=== PATIENT | female | born 1985 | race African-American/Black ===

== ENCOUNTER 2020-08-17 14:18 | Emergency (ER) | payer OTHER, SELFPAY ==
[2020-08-17 14:25] VITALS: PULSE 90; RESP 16; TEMP 36.8; O2SAT 100
--- NOTE | 2020-08-17 15:00 | ED.URI ---
HPI - URI/Sore Throat General Chief Complaint: Upper Respiratory Infection Stated Complaint: Headache Time Seen by Provider: 08/17/20 15:00 Source: patient Mode of arrival: ambulatory Limitations: no limitations History of Present Illness HPI Narrative: Suma Edmondson is a 35 yo female with no PMH who comes to [facility] with complaints of sinus pressure and pain and a headache that has been going on for 5 to 7 days. Her PCP sent her out Zithromax which made her stomach really upset but the PCP cannot see her until September 28. She has not had Covid testing has not had fever chills other typical symptoms related to Covid virus Related Data Home Medications Medication Instructions Recorded Confirmed Syness Bc Pill 08/17/20 Allergies Allergy/AdvReac Type Severity Reaction Status Date / Time banana Allergy Mild Hives / Verified 11/17/17 19:43 Red Face seafood Allergy Mild Hives / Uncoded 11/17/17 19:44 Red Face Review of Systems Review of Systems: Narrative: CONSTITUTIONAL: Denies fever, chills, sweats. EYES: Denies visual changes, redness, discharge. ENT: Denies rhinorrhea, congestion, sore throat, otalgia. Bilateral sinus pressure and tenderness, headache CARDIOVASCULAR: Denies chest pain, palpitations, edema. RESPIRATORY: Denies dyspnea, wheezing, cough GASTROINTESTINAL: Denies abdominal pain, nausea, vomiting, diarrhea. GENITOURINARY: Denies dysuria, hematuria, abnormal discharge SKIN: Denies rash or itching. NEUROLOGIC: Denies numbness, or focal weakness. PSYCHIATRIC: Denies anxiety or depression. PMFSH Past Medical History Medical History No acute medical problems Family History Family History Other No acute medical problems Social History Social History (Updated 08/17/20 @ 15:09 by Savi Feliz CNP) Smoking status: Never smoker Alcohol intake: current Comments At time of signature, I agree with nursing past medical, surgical, social and family history. There is no relevant family history pertinent to the presenting complaint. Exam Narrative: Exam Narrative: GENERAL: This is a well-nourished, well-developed patient, in mild distress. HEAD: normocephalic, atraumatic. EYES:. Sclera clear/white. Vision is grossly intact. EARS: External ears normal, auditory canals right ear draining TMs normal without perforation. Hearing grossly intact. NOSE: External nose normal without nasal discharge, nares without redness, no rhinorrhea. Has bilateral frontal sinus tenderness THROAT: Mucous membranes moist, posterior pharynx erythema with no exudate NECK: Neck supple, non-tender CARDIOVASCULAR: Regular rate and rhythm without murmurs, gallops, or rubs. RESPIRATORY: Clear to auscultation. Breath sounds equal bilaterally. No wheezes, rales, or rhonchi. GASTROINTESTINAL: Abdomen soft, non-tender, SKIN: warm, intact with no suspicious lesions or rash, good texture and turgor. NEURO: awake, alert, and oriented to person, place and time. There were no obvious focal neurologic abnormalities. Steady gait EXTREMITIES: Normal range of motion. BACK: Nontender without deformity Course Course Emergency Course: Patient was symptomatic for the last 5 to 7 days and called her PCP who sent Zithromax out the medication made her sick and she stopped taking it although she still symptomatic. Now she has sinus pain and headache, has a history of sinus congestion this time of the year also is complaining of ear pain her left ear being worse than the right Covid test was negative (rapid) Started on steroids Zyrtec and eardrops Vital Signs Vital signs: Vital Signs Temperature 98.2 F 08/17/20 14:25 Pulse Rate 90 08/17/20 14:25 Respiratory Rate 16 08/17/20 14:25 Pulse Oximetry 100 08/17/20 14:25 Temperature 98.2 F 08/17/20 14:25 Pulse Rate 90 08/17/20 14:25 Respiratory
== END 2020-08-17 16:12 | disposition home or self-care (01) ==
PROVIDERS: Emergency Provider Nurse Practitioner; PCP Family Medicine
DX: H66.001 Acute suppurative otitis media without spontaneous rupture of ear drum, right ear (principal); J01.11 Acute recurrent frontal sinusitis; Z20.822 Contact with and (suspected) exposure to COVID-19
CPT/HCPCS: 87426; 99213; C9803; G0463

== ENCOUNTER 2021-01-17 08:53 | Emergency (ER) | payer OTHER, SELFPAY ==
[2021-01-17 09:02] VITALS: BP 113/79; PULSE 75; RESP 16; TEMP 37; O2SAT 99
--- NOTE | 2021-01-17 09:45 | ED.URI ---
HPI - URI/Sore Throat General Chief Complaint: Upper Respiratory Infection Stated Complaint: sore throat/cp Time Seen by Provider: 01/17/21 09:37 Source: patient and RN notes reviewed Mode of arrival: ambulatory Limitations: no limitations History of Present Illness HPI Narrative: Patient presents today complaining of a sore throat since yesterday. Denies any additional symptoms to include cough, congestion, rhinorrhea, ear pain, fever. Currently rates her pain 8/10 and took 2 ibuprofen at 2:00 this morning without relief. MD elicited complaint: sore throat Related Data Home Medications Medication Instructions Recorded Confirmed No Home Medications 01/17/21 01/17/21 Allergies Allergy/AdvReac Type Severity Reaction Status Date / Time banana Allergy Mild Hives / Verified 11/17/17 19:43 Red Face seafood Allergy Mild Hives / Uncoded 11/17/17 19:44 Red Face Review of Systems Review of Systems: CONSTITUTIONAL: Denies body aches, fever, chills, or sweats. EYES: Denies visual changes, redness, or discharge. ENT: Denies rhinorrhea, congestion, or otalgia.+ Sore throat CARDIOVASCULAR: Denies chest pain, palpitations, or edema. RESPIRATORY: Denies cough or dyspnea. GASTROINTESTINAL: Denies abdominal pain, nausea, vomiting, or diarrhea. GENITOURINARY: Denies dysuria or hematuria. SKIN: Denies rash, itching, or wounds. MUSCULOSKELETAL: Denies back pain, joint pain, or myalgia. NEUROLOGIC: Denies headache, numbness, tingling, or weakness. PSYCH: Denies depression or anxiety. PMFSH Past Medical History Medical History No acute medical problems Family History Family History Other No acute medical problems Social History Social History (Updated 08/17/20 @ 15:09 by Savi Feliz CNP) Smoking status: Never smoker Alcohol intake: current Comments At time of signature, I have reviewed and agree with nursing past medical, surgical, social and family history unless otherwise noted. Please see nursing chart for further information. There is no relevant family history pertinent to the presenting complaint Exam Narrative: GENERAL: Well-appearing, well-nourished, and in no acute distress. HEAD: Normocephalic, atraumatic. EYES: EOMI. No redness or drainage. Conjunctivae normal. ENT: Mucous membranes pink and moist. Nares clear. No rhinorrhea. TMs normal bilaterally. Throat very mildly erythematous without edema or exudate. Uvula midline. NECK: Normal AROM. Supple. Tenderness over the lymph nodes of the anterior cervical chain. CHEST: No respiratory distress. Clear to auscultation. HEART: Regular rate and rhythm. No murmur appreciated. Normal peripheral pulses. EXTREMITIES: Normal range of motion. No edema. SKIN: Warm, dry, no rash. Capillary refill normal. Normal skin turgor. NEURO: No focal deficits. Alert and oriented x3. Gait steady. PSYCH: Normal affect. No signs of depression or anxiety. Course Vital Signs Vital signs: Vital Signs Temperature 98.6 F 01/17/21 09:02 Pulse Rate 75 01/17/21 09:02 Respiratory Rate 16 01/17/21 09:02 Blood Pressure 113/79 01/17/21 09:02 Pulse Oximetry 99 01/17/21 09:02 Temperature 98.6 F 01/17/21 09:02 Pulse Rate 75 01/17/21 09:02 Respiratory Rate 16 01/17/21 09:02 Blood Pressure 113/79 01/17/21 09:02 Pulse Oximetry 99 01/17/21 09:02 Reviewed. Pt has been instructed to follow up with his PCP regarding his elevated blood pressure today. MDM - URI/Sore Throat Differential Diagnosis Differential diagnosis: Likely upper respiratory infection, pharyngitis and other (Strep throat) Lab Data Attestation: I reviewed the patient's lab results. Labs: Strep Screen Presumptive Negative *(Reference Range: Negative)* Critical Care Time Critical Care Time Consuelo
== END 2021-01-17 10:01 | disposition home or self-care (01) ==
PROVIDERS: Emergency Provider Nurse Practitioner; PCP Nurse Practitioner Family
DX: J02.9 Acute pharyngitis, unspecified (principal)
CPT/HCPCS: 87081; 87880; 99213; G0463

== ENCOUNTER 2021-09-24 09:11 | Emergency (ER) | payer BC, SELFPAY ==
[2021-09-24 09:23] VITALS: BP 119/76; PULSE 74; RESP 16; TEMP 36.6; O2SAT 99
--- NOTE | 2021-09-24 09:32 | ED.URI ---
HPI - URI/Sore Throat General Chief Complaint: Upper Respiratory Infection Stated Complaint: Sore Throat Time Seen by Provider: 09/24/21 09:33 Source: patient, RN notes reviewed and old records reviewed Mode of arrival: ambulatory Limitations: no limitations History of Present Illness HPI Narrative: 36-year-old female presents to the [facility] with complaints of a sore throat that started when she woke up this morning. Patient states that she called in sick to work. Requesting a work note. Denies fevers. No treatment prior to arrival. Denies any abdominal pain or chest pain. Denies any nausea vomiting or diarrhea. States that she just has a sore throat Related Data Home Medications Medication Instructions Recorded Confirmed etonogestrel 0.12 mg-ethinyl 1 vag ring vaginal MONTHLY 09/24/21 09/24/21 estradiol 0.015 mg/24 hr vaginal ring (EluRyng) Allergies Allergy/AdvReac Type Severity Reaction Status Date / Time banana Allergy Mild Hives / Verified 09/24/21 09:38 Red Face seafood Allergy Mild Hives / Uncoded 09/24/21 09:38 Red Face Review of Systems Review of Systems: All systems reviewed & are unremarkable except as noted in HPI and below Constitutional: Constitutional: Reports no additional constitutional complaints, Denies chills and Denies fever(s) Eyes: Eyes: Reports no additional eye complaints ENT: Reports as per HPI and Reports sore throat Cardiovascular: Cardiovascular: Reports no additional cardiovascular complaints Respiratory: Respiratory: Reports no additional respiratory complaints Gastrointestinal: Gastrointestinal: Reports no additional gastrointestinal complaints Musculoskeletal: Musculoskeletal: Reports no additional musculoskeletal complaints Integumentary/Breasts: Skin/Breast: Reports system reviewed and no additional complaints, except as docu Neurologic: Reports system reviewed and no additional complaints, except as documented Psychiatric: Psychiatric: Reports no additional psychiatric complaints Allergic/Immunologic: Allergic/Immunologic: Reports no additional allergic/immunologic complaints [facility] Past Medical History Medical History No acute medical problems Family History Family History Other No acute medical problems Social History Social History Smoking status: Never smoker Alcohol intake: current Comments At the time of my signature, I reviewed and agree with the nursing past medical, surgical, social, and family history. There is no relevant family history pertinent to the patient complaint. Exam Const: General: healthy appearing, no acute distress and alert Nutritional Appearance: well nourished and obese Orientation/consciousness: patient oriented x3 Limitations: no limitations HENMT: Head: normal to inspection Ears: external ears normal, TM's normal bilaterally, EAC's normal and mastoids normal General nose exam: Normal external nose present Mouth: Yes Normal oral and palatal mucosa present Throat: posterior oropharynx normal, tonsils normal, uvula midline and postnasal drainage Eyes: General: appearance normal, both eyes and all related structures Pupils: Equal, round and reactive pupils present Neck: Neck: normal visual inspection, no lymphadenopathy and no meningeal signs Chest: Chest palpation & inspection: normal inspection of the chest Resp: Effort & Inspection: normal respiratory effort and no use of accessory muscles Auscultation: clear to auscultation bilaterally, no crackles, no rales, no rhonchi and no wheezes Cardio: Rate: regular rate Rhythm: regular rhythm Back/Spine/Pelvis: Cervical Spine: normal cervical lordosis Thoracic/Lumbar Spine: thoracic and lumbar spine normal to inspection Skin: General skin exam: normal color Rashes: no rashes Wou
== END 2021-09-24 10:04 | disposition home or self-care (01) ==
PROVIDERS: Emergency Provider Nurse Practitioner; PCP Family Medicine
DX: J02.9 Acute pharyngitis, unspecified (principal)
CPT/HCPCS: 87081; 87880; 99213; G0463

== ENCOUNTER 2021-11-27 11:33 | Emergency (ER) | payer BC, SELFPAY ==
--- NOTE | ~2021-11-27 | XR_ITS ---
EXAMINATION: XR hand LT min 3V INDICATION: Left hand pain TECHNIQUE: Three views of the left hand are obtained. COMPARISON: None available FINDINGS: Bone alignment is normal. There is no fracture. There is mild dorsal soft tissue swelling o f the hand. The joint spaces are normal. IMPRESSION: 1. No acute osseous abnormality. Reviewed, dictated and finalized at location B.
[2021-11-27 11:42] VITALS: BP 121/79; PULSE 81; RESP 16; TEMP 36.6; O2SAT 99
--- NOTE | 2021-11-27 12:01 | ED.UPPEXIN ---
HPI - Extremity Injury (Upper) General Chief Complaint: Extremity Injury, Upper Stated Complaint: left hand swollen Time Seen by Provider: 11/27/21 12:02 Source: patient, RN notes reviewed and old records reviewed Mode of arrival: ambulatory Limitations: no limitations History of Present Illness HPI narrative: 36-year-old female who presents to [facility] care with complaints of pain to the left dorsal hand across meta-carpal region from where she hit her left hand on a wheel chair last evening. 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 She reports that she is also having pain to her left bicep region with some pain with movement and to the lower left back. MD complaint: injury to: left, arm (bicep) and hand Onset (ago): day(s) (last night) Other injuries: back (left lower) Severity scale (1-10): 3 Related Data Home Medications Medication Instructions Recorded Confirmed etonogestrel 0.12 mg-ethinyl 1 vag ring vaginal MONTHLY 09/24/21 11/27/21 estradiol 0.015 mg/24 hr vaginal ring (EluRyng) bupropion HCl 150 mg 24 hr tablet, 150 mg PO DAILY 11/27/21 11/27/21 extended release ergocalciferol (vitamin D2) 1,250 1,250 mcg PO DAILY 11/27/21 11/27/21 mcg (50,000 unit) capsule Allergies Allergy/AdvReac Type Severity Reaction Status Date / Time banana Allergy Mild Hives / Verified 11/27/21 12:04 Red Face seafood Allergy Mild Hives / Uncoded 11/27/21 12:04 Red Face Review of Systems Review of Systems: CONSTITUTIONAL: Denies fever, chills, or sweats. EYES: Denies visual changes, redness, or discharge. ENT: Denies rhinorrhea, congestion, sore throat, or otalgia. CARDIOVASCULAR: Denies chest pain, palpitations, or edema. RESPIRATORY: Denies cough or dyspnea. GASTROINTESTINAL: Denies abdominal pain, nausea, vomiting, or diarrhea. GENITOURINARY: Denies dysuria or hematuria. SKIN: Denies rash or itching. MUSCULOSKELETAL: Reports left lower back pain, left biceps discomfort, left dorsal hand pain with minimal swelling, or myalgia. NEUROLOGIC: Denies headache, numbness, or weakness. PSYCHIATRIC: Positive for history of anxiety or depression. All systems reviewed & are unremarkable except as noted in HPI and below PMFSH Past Medical History Medical History (Updated 11/28/21 @ 20:51 by Amanda Mixon NP) Anxiety Arm fracture, left Back pain GERD (gastroesophageal reflux disease) Panic attacks Surgical History Surgical History (Updated 11/28/21 @ 20:42 by Amanda Mixon NP) H/O inguinal hernia repair History of cholecystectomy Hx of hand surgery left ring finger Family History Family History Other No acute medical problems Social History Social History (Updated 11/28/21 @ 20:46 by Amanda Mixon NP) Smoking status: Never smoker Alcohol intake: current Substance use type: does not use Living arrangements: with family Gender identity (if verbalized by the patient): Female Comments At time of signature, agree with nursing past medical, surgical, social and family history. There is no relevant family history pertinent to the presenting complaint Exam Narrative: GENERAL: Well-appearing, well-nourished, and in no acute distress. HEAD: Normocephalic, atraumatic. EYES: PERRLA and EOMI. ENT: Nares clear, no rhinorrhea or epistaxis. Mucous membranes moist. TM's normal with good light reflex, throat pink with no lesions or exudates, no tonsil swelling NECK: Supple. no lymphadenopathy CHEST: Clear to auscultation. No respiratory distress.SAO2 99% on room air HEART: Regular rate and rhythm. No murmur heard. Normal peripheral pulses. ABDOMEN: Soft, nontender, nondistended, normal active bowel sounds. EXTREMITIES: Normal range of motion. mild edema dorsal left hand with discomfo
== END 2021-11-27 12:34 | disposition home or self-care (01) ==
PROVIDERS: Emergency Provider Registered Nurse; PCP Nurse Practitioner Family
DX: S60.222A Contusion of left hand, initial encounter (principal); W22.8XXA Striking against or struck by other objects, initial encounter; Y99.0 Civilian activity done for income or pay; M54.50 Low back pain, unspecified; S46.212A Strain of muscle, fascia and tendon of other parts of biceps, left arm, initial encounter; X50.0XXA Overexertion from strenuous movement or load, initial encounter; K21.9 Gastro-esophageal reflux disease without esophagitis; F41.9 Anxiety disorder, unspecified; F41.0 Panic disorder [episodic paroxysmal anxiety]
CPT/HCPCS: 73130; 99213; G0463

== ENCOUNTER 2022-04-20 09:28 | Emergency (ER) | payer BC, SELFPAY ==
[2022-04-20 09:52] VITALS: BP 124/81; PULSE 97; RESP 16; TEMP 36.4; O2SAT 98
--- NOTE | 2022-04-20 11:05 | ED.URI ---
HPI - URI/Sore Throat General Chief Complaint: Upper Respiratory Infection Stated Complaint: uri Time Seen by Provider: 04/20/22 09:28 Source: patient Mode of arrival: ambulatory Limitations: no limitations History of Present Illness HPI Narrative: 37-year-old female presents to [facility] with complaints of headache, nasal congestion, sinus pressure, cough, body aches, fatigue and sore throat for the past 5 days. Patient reports that she did have a syncopal episode while working on Thursday; she reports that she called her primary care provider concerning syncopal episode and was told that it was likely from COVID. Patient then had negative COVID test at a local pharmacy yesterday. Patient denies shortness of breath, wheezing fevers, vomiting or diarrhea. Patient is a smoker. Patient denies chest pain, dizziness or blurred vision. Patient has been taking [id number] Sudafed, Tylenol, ibuprofen completing sinus rinses with minimal relief MD elicited complaint: cough, sore throat, rhinorrhea, nasal congestion and sinus pain Onset (ago): day(s) (5) Able to tolerate fluids by mouth: Yes Treatments prior to arrival: acetaminophen, ibuprofen and cold medicine Related Data Home Medications Medication Instructions Recorded Confirmed etonogestrel 0.12 mg-ethinyl 1 vag ring vaginal MONTHLY 09/24/21 11/27/21 estradiol 0.015 mg/24 hr vaginal ring (EluRyng) bupropion HCl 150 mg 24 hr tablet, 150 mg PO DAILY 11/27/21 11/27/21 extended release ergocalciferol (vitamin D2) 1,250 1,250 mcg PO DAILY 11/27/21 11/27/21 mcg (50,000 unit) capsule Allergies Allergy/AdvReac Type Severity Reaction Status Date / Time banana Allergy Mild Hives / Verified 04/20/22 10:12 Red Face seafood Allergy Mild Hives / Uncoded 04/20/22 10:12 Red Face Review of Systems Constitutional: Constitutional: Reports chills, Reports fatigue, Denies fever(s) and Denies weakness ENT: Denies vertigo, Denies dizziness, Reports nasal congestion and Reports sore throat Cardiovascular: Cardiovascular: Denies chest pain Respiratory: Respiratory: Reports cough, Denies dyspnea and Denies wheezing Gastrointestinal: Gastrointestinal: Denies diarrhea, Denies nausea and Denies vomiting Integumentary/Breasts: Skin/Breast: Denies rash Neurologic: Denies dizziness PMFSH Past Medical History Medical History Anxiety Arm fracture, left Back pain GERD (gastroesophageal reflux disease) Panic attacks Surgical History Surgical History H/O inguinal hernia repair History of cholecystectomy Hx of hand surgery left ring finger Family History Family History Other No acute medical problems Social History Social History Smoking status: Never smoker Alcohol intake: current Substance use type: does not use Gender identity (if verbalized by the patient): Female Comments At time of signature, I agree with nursing past medical, surgical, social and family history. There is no relevant family history pertinent to the presenting complaint. Exam Const: General: healthy appearing and no acute distress Nutritional Appearance: well nourished Orientation/consciousness: patient oriented x3 Limitations: no limitations HENMT: Head: normal to inspection Ears: external ears normal and TM's normal bilaterally Face and sinus: sinus tenderness frontal Mouth: Yes moist mucous membranes Throat: posterior oropharynx normal and uvula midline Other: moderate nasal congestion noted, right is worse than left Eyes: Conjunctivae: conjunctivae normal Neck: Neck: normal visual inspection Resp: Effort & Inspection: normal respiratory effort and not labored Auscultation: clear to auscultation bilaterally, no crackles, no rales and
== END 2022-04-20 11:33 | disposition home or self-care (01) ==
PROVIDERS: Emergency Provider Nurse Practitioner Family; PCP Nurse Practitioner Family
DX: J32.9 Chronic sinusitis, unspecified (principal); K21.9 Gastro-esophageal reflux disease without esophagitis; F41.9 Anxiety disorder, unspecified; F41.0 Panic disorder [episodic paroxysmal anxiety]
CPT/HCPCS: 87804; 99213; G0463

== ENCOUNTER 2022-12-07 15:09 | Emergency (ER) | payer BC, SELFPAY | END 2022-12-07 15:32 | disposition left against medical advice (07) | PROVIDERS: PCP Family Medicine | DX: R51.9 Headache, unspecified (principal) | CPT/HCPCS: 99199 ==